=== PATIENT | female | born 1990 | race Caucasian/White ===

== ENCOUNTER 2016-07-01 09:54 | Emergency (ER) | payer BC ==
[~2016-07-01] VITALS: Ht 157.5 cm; Wt 159.1 kg
[~2016-07-01 09:54] MED LIST: GLUCOPHAGE500 MG/TAB PO; LO LOESTRIN FE1 TAB PO; ORTHO-CYCLEN 351 TAB; VIT; ZOFRAN 4MG T4 MG/TAB PO
[2016-07-01 09:57] VITALS: BP 144/82; PULSE 106; TEMP 98.1
[2016-07-01] MEDS ORDERED: ZESTRIL 5MG5 MG PO (10:02)
[2016-07-01] MEDS ORDERED: XIGDUO5/1000 PO (10:02)
[2016-07-01] MEDS ORDERED: ADIPEX-P37.5 MG PO (10:02)
[2016-07-01] MEDS ORDERED: ZOCOR5 MG PO (10:03)
[2016-07-01] MEDS ORDERED: MULTI VITAMINS1 TAB PO (10:04)
[2016-07-01] MEDS ORDERED: NORCO 325 MG-51 TAB PO (10:17)
[2016-07-01] MEDS ORDERED: ZOFRAN ODT4 MG PO (10:17)
[2016-07-01] MEDS ORDERED: PEN-VEE K500 MG PO (10:17)
== END 2016-07-01 10:49 | disposition home or self-care (01) ==
LOC: COL.ER 09:54
DX: K08.89 Other specified disorders of teeth and supporting structures (principal); E11.9 Type 2 diabetes mellitus without complications; Z79.84 Long term (current) use of oral hypoglycemic drugs

== ENCOUNTER 2016-07-15 01:01 | Emergency (ER) | payer BC ==
[~2016-07-15] VITALS: Ht 160 cm; Wt 159.1 kg
[~2016-07-15 01:01] MED LIST changes: +ADIPEX-P37.5 MG PO; +MULTI VITAMINS1 TAB PO; +NORCO 325 MG-51 TAB PO; +PEN-VEE K500 MG PO; +XIGDUO5/1000 PO; +ZESTRIL 5MG5 MG PO; +ZOCOR5 MG PO; +ZOFRAN ODT4 MG PO
[2016-07-15 01:04] VITALS: BP 129/62; PULSE 84; TEMP 98.4
== END 2016-07-15 01:19 | disposition left against medical advice (07) ==
LOC: COL.ER 01:01
DX: K08.89 Other specified disorders of teeth and supporting structures (principal); E11.9 Type 2 diabetes mellitus without complications; Z79.84 Long term (current) use of oral hypoglycemic drugs; I10 Essential (primary) hypertension

== ENCOUNTER 2016-07-26 11:26 | Emergency (ER) | payer BC ==
[~2016-07-26] VITALS: Ht 157.5 cm; Wt 159.1 kg
[2016-07-26 11:31] VITALS: TEMP 98.8
[2016-07-26] MEDS ORDERED: PREDNISONE20 MG PO (13:18)
[2016-07-26] MEDS ORDERED: PROAIR HFA0.09 MG/AC IH (13:18)
[2016-07-26 13:28] VITALS: BP 128/89; PULSE 120
== END 2016-07-26 13:29 | disposition home or self-care (01) ==
LOC: COL.ER 11:26
DX: J20.9 Acute bronchitis, unspecified (principal); E11.9 Type 2 diabetes mellitus without complications; Z79.84 Long term (current) use of oral hypoglycemic drugs; I10 Essential (primary) hypertension; R00.0 Tachycardia, unspecified
CPT/HCPCS: J7512

== ENCOUNTER 2016-09-21 13:37 | Emergency (ER) | payer BC ==
[~2016-09-21] VITALS: Ht 157.5 cm; Wt 154.5 kg
[~2016-09-21 13:37] MED LIST changes: +PREDNISONE20 MG PO; +PROAIR HFA0.09 MG/AC IH
[2016-09-21 13:49] VITALS: BP 118/86; TEMP 98.3
[2016-09-21 15:32] LABS: CREATININE, serum 0.72 mg/dL (0.52-1.25); POTASSIUM 4.1 mmol/L (3.4-5.0)
[2016-09-21 16:57] VITALS: PULSE 89
== END 2016-09-21 16:59 | disposition home or self-care (01) ==
LOC: COL.ER 13:37
PROVIDERS: Emergency Medicine
DX: R51 Headache (principal); R93.0 Abnormal findings on diagnostic imaging of skull and head, not elsewhere classified; E11.9 Type 2 diabetes mellitus without complications; Z79.84 Long term (current) use of oral hypoglycemic drugs
CPT/HCPCS: J1200; J2765; J3360

== ENCOUNTER 2016-10-26 19:23 | Emergency (ER) | payer BC ==
[~2016-10-26] VITALS: Ht 157.5 cm; Wt 154.5 kg
[2016-10-26 19:25] VITALS: BP 143/94; TEMP 98.3
[2016-10-26] MEDS ORDERED: PEN-VEE K500 MG PO (19:47)
[2016-10-26] MEDS ORDERED: NORCO 325 MG-51 TAB PO (19:47)
[2016-10-26 20:05] VITALS: PULSE 94
== END 2016-10-26 20:05 | disposition home or self-care (01) ==
LOC: COL.ER 19:23
DX: K08.89 Other specified disorders of teeth and supporting structures (principal); E11.9 Type 2 diabetes mellitus without complications; Z79.84 Long term (current) use of oral hypoglycemic drugs; Z87.891 Personal history of nicotine dependence